=== PATIENT | female | born 1955 | race Caucasian/White ===

== ENCOUNTER 2021-09-25 09:13 | Outpatient (CLI) | payer BC | END 2021-09-25 09:14 | disposition home or self-care (01) | LOC: CSHMAMMO 09:13 | PROVIDERS: ATTEND Obstetrics & Gynecology | DX: Z12.31 Encounter for screening mammogram for malignant neoplasm of breast (principal); M85.851 Other specified disorders of bone density and structure, right thigh; M85.852 Other specified disorders of bone density and structure, left thigh; M81.0 Age-related osteoporosis without current pathological fracture | CPT/HCPCS: 77063; 77067; 77080 ==

== ENCOUNTER 2022-09-29 10:48 | Outpatient (CLI) | payer MEDICARE, BC | END 2022-09-29 10:49 | disposition home or self-care (01) | LOC: CSHMAMMO 10:48 | DX: Z12.31 Encounter for screening mammogram for malignant neoplasm of breast (principal) | CPT/HCPCS: 77063; 77067 ==

== ENCOUNTER 2023-09-30 09:26 | Outpatient (CLI) | payer MEDICARE, BC | END 2023-09-30 09:27 | disposition home or self-care (01) | LOC: CSHMAMMO 09:26 | PROVIDERS: ATTEND Obstetrics & Gynecology | DX: Z12.31 Encounter for screening mammogram for malignant neoplasm of breast (principal); Z13.820 Encounter for screening for osteoporosis; M81.0 Age-related osteoporosis without current pathological fracture; M85.852 Other specified disorders of bone density and structure, left thigh | CPT/HCPCS: 77063; 77067; 77080 ==

== ENCOUNTER 2024-06-13 09:39 | Outpatient (CLI) | payer MEDICARE | END 2024-06-13 09:40 | disposition home or self-care (01) | LOC: CSHRAD 09:39 | PROVIDERS: ATTEND Internal Medicine Rheumatology | DX: M25.552 Pain in left hip (principal); M79.652 Pain in left thigh; M81.0 Age-related osteoporosis without current pathological fracture; M67.952 Unspecified disorder of synovium and tendon, left thigh ==

== ENCOUNTER 2024-10-02 09:56 | Outpatient (CLI) | payer MEDICARE | END 2024-10-02 09:57 | disposition home or self-care (01) | LOC: CSHMAMMO 09:56 | PROVIDERS: ATTEND Obstetrics & Gynecology | DX: Z12.31 Encounter for screening mammogram for malignant neoplasm of breast (principal) | CPT/HCPCS: 77063; 77067 ==

== ENCOUNTER 2025-06-11 09:45 | Outpatient (CLI) | payer MEDICARE | END 2025-06-11 09:46 | disposition home or self-care (01) | LOC: CSHMAMMO 09:45 | PROVIDERS: ATTEND Internal Medicine Rheumatology | DX: M81.0 Age-related osteoporosis without current pathological fracture (principal); M85.89 Other specified disorders of bone density and structure, multiple sites | CPT/HCPCS: 77080 ==

== ENCOUNTER 2025-10-04 09:01 | Outpatient (CLI) | payer MEDICARE | END 2025-10-04 09:02 | disposition home or self-care (01) | LOC: CSHMAMMO 09:01 | PROVIDERS: ATTEND Obstetrics & Gynecology | DX: Z12.31 Encounter for screening mammogram for malignant neoplasm of breast (principal); Z80.3 Family history of malignant neoplasm of breast | CPT/HCPCS: 77063; 77067 ==